=== PATIENT | female | born 1985 | race Two or more races ===

== ENCOUNTER → 2024-10-02 | Outpatient (CLI) | payer OTHER ==
--- NOTE | 2024-10-02 10:16 | US ---
EXAMINATION TYPE: US abdomen complete DATE OF EXAM: 10/02/2024 COMPARISON: NONE CLINICAL INDICATION: Female, 39 years old with history of R10.11 RIGHT UPPER QUADRANT PAIN; Pain x a couple years. Hx of gallstones. TECHNIQUE: Grayscale and color Doppler imaging of the abdomen was performed. FINDINGS: EXAM MEASUREMENTS: Liver Length: 17.2 cm. Normal less than 15.5 cm. Gallbladder Wall: 0.31 cm. This is borderline thickened CBD: Obscured Spleen: 10.5 cm Right Kidney: 12.0 x 5.5 x 4.7 cm Left Kidney: 11.3 x 6.0 x 5.7 cm BLENDING OPERATOR NOTES: Exam is limited due to gas. Pancreas: Limited. Portion of head and tail not seen. Liver: *Measures mildly enlarged. Gallbladder: *Hyperechoic foci and material seen within the gallbladder with posterior shadowin.3 x 2.2 x 1.4 cm. Evidence for sonographic Mckay's sign: No CBD: *Obscured due to shadowing from gallbladder Spleen: No abnormalities seen, limited due to rib shadow and gas. Right Kidney: wnl, No hydronephrosis, calculi or masses seen Left Kidney: wnl, No hydronephrosis, calculi or masses seen Upper IVC: wnl Abd Aorta: *Proximal segment appears ectatic. IMPRESSION: 1. Cholelithiasis. 2. [facility] Ronnie Chan, Workstation: [facility], 10/02/2024 10:14 AM
== END | disposition home or self-care (01) ==
LOC: RADUSWWP 07:02
PROVIDERS: ATTEND Family Medicine
DX: K80.20 Calculus of gallbladder without cholecystitis without obstruction (principal); R16.0 Hepatomegaly, not elsewhere classified
CPT/HCPCS: 76700

== ENCOUNTER 2024-11-30 12:25 | Day surgery (SDC) | payer OTHER ==
[2024-11-26 10:18] VITALS: BMI 36.6
--- NOTE | 2024-11-30 08:59 | P.GSHP ---
History of Present Illness H&P Date: 11/30/24 CHIEF COMPLAINT: Cholecystitis HISTORY OF PRESENT ILLNESS: The patient is a 39-year-old female who presents with history of epigastric including right upper quadrant abdominal pain for over 3 months due to gallstones. She underwent diagnostic studies for her gallbladder. Separately her clinical picture was consistent with cholecystitis. Now she presents for surgical intervention. PAST MEDICAL HISTORY: Please see list PAST SURGICAL HISTORY: Please see list MEDICATIONS: Please see list ALLERGIES: Please see list SOCIAL HISTORY: Please see list FAMILY HISTORY: Please see list REVIEW OF ORGAN SYSTEMS: CONSTITUTIONAL: No reports of fevers or chills. HEENT: Denies any troubles with the vision or hearing. ENDOCRINE: No reports of hypothyroidism. No diabetes. RESPIRATORY: No recent pneumonias. CARDIOVASCULAR: Denies chest pain or palpitations GI: No blood in stools or constipation. MUSCULOSKELETAL: Has occasional joint pain including back pain. NEURO: No seizure disorders or headaches. No recent stroke. PSYCH: No depression or suicidal ideation. GENITOURINARY: No active blood in urine. No urinary hesitancy. HEMATOLOGIC: No personal or family history of DVTs or pulmonary emboli. SKIN: No skin cancer. PHYSICAL EXAM: VITAL SIGNS: Afebrile vital signs stable GENERAL: Well-developed pleasant in no acute distress. HEENT: No scleral icterus. Extraocular movements grossly intact. Moist buccal mucosa. NECK: Supple without lymphadenopathy. CHEST: Unlabored respirations. Equal bilateral excursions. CARDIOVASCULAR: Regular rate regular rhythm rhythm. Distal 2+ pulses. ABDOMEN: Soft, nondistended. Tender along the epigastrium and right upper quadrant. MUSCULOSKELETAL: No clubbing, cyanosis, or edema. NEURO: Cranial nerves II to XII within normal limits. No focal or lateralizing signs. PSYCH: Alert and oriented to person, place and time. SKIN: Well-perfused good skin turgor. ASSESSMENT: 1. Epigastric and right upper quadrant abdominal pain 2. Chronic cholecystitis 3. Symptomatic gallstones. PLAN: 1. Will need a robotic cholecystectomy possible open. Benefits and risks were described. 2. Heparin for DVT prophylaxis 5000 units. 3. Antibiotic prophylaxis. 4. CBC and CMP on day of procedure 5. Non-narcotic pre and post op pain management reviewed. 6. Indocyanine green for biliary imaging. Past Medical History Past Medical History: No Reported History History of Any Multi-Drug Resistant Organisms: None Reported Additional Past Surgical History / Comment(s): Oopherectomy(cannot recall which side) and dermoid cyst removed. Past Anesthesia/Blood Transfusion Reactions: No Reported Reaction Smoking Status: Vaper - Past Family History Mother Family Medical History: No Reported History Medications and Allergies Home Medications Medication Instructions Recorded Confirmed Type Lisdexamfetamine Dimesylate 30 mg PO DAILY 11/26/24 11/26/24 History [Vtrinoe] Allergies Allergy/AdvReac Type Severity Reaction Status Date / Time No Known Allergies Allergy Verified 11/26/24 09:49
[~2024-11-30 12:25] MED LIST: INDOCYANINE GREEN 25 MG VIAL IV STA
[2024-11-30] MEDS: IV FLUID CONTINUATION 1,000 ML IV ONE (13:10)
[2024-11-30] MEDS: LACTATED RINGERS 1,000 ML IV SCH (13:38)
[2024-11-30] MEDS: DEXAMETHASONE SOD PHOSPHATE 4 MG/ML 1 ML VIAL IV ONE (13:39)
[2024-11-30] MEDS: ACETAMINOPHEN TAB 500 MG TAB PO PRN (13:39)
[2024-11-30] MEDS: ONDANSETRON 4 MG/2 ML VIAL IVP PRN (13:39)
[2024-11-30] MEDS: HEPARIN SODIUM,PORCINE 5,000 UNIT/ML 1 ML VIAL SQ PRN (13:40)
[2024-11-30] MEDS: SCOPOLAMINE 1 MG/72 HR PATCH TRANSDERM STA (13:41)
[2024-11-30] MEDS ORDERED: NEOSTIGMINE 1 MG/ML 10 ML VIAL ONE (13:41)
[2024-11-30] MEDS ORDERED: MIDAZOLAM 2 MG/2 ML VIAL ONE (13:41)
[2024-11-30] MEDS ORDERED: SUCCINYLCHOLINE CHLORIDE 200 MG/10 ML VIAL IV ONE (13:41)
[2024-11-30] MEDS ORDERED: ePHEDrine 50 MG/ML 1 ML VIAL ONE (13:41)
[2024-11-30] MEDS ORDERED: GLYCOPYRROLATE 0.2 MG/ML 2 ML VIAL ONE (13:41)
[2024-11-30] MEDS ORDERED: fentaNYL (PF) 50 MCG/ML 2 ML AMP ONE (13:41)
[2024-11-30] MEDS ORDERED: ROCURONIUM 10 MG/ML (5 ML VIAL) IV ONE (13:41)
[2024-11-30] MEDS ORDERED: PROPOFOL 10 MG/ML 20 ML VIAL IV ONE (13:41)
[2024-11-30] MEDS ORDERED: diphenhydrAMINE 50 MG/ML 1 ML VIAL ONE (13:41)
[2024-11-30] MEDS ORDERED: LIDOCAINE 1% INJ 10MG/ML (20 ML MDV) ONE (13:41)
[2024-11-30] MEDS ORDERED: HYDROmorphone (PF) 1 MG/ML ONE (13:41)
[2024-11-30] MEDS: ceFAZolin 2 GM in DEXTROSE 5% IN WATER 50 ML IVPB PRN (13:47)
[2024-11-30] MEDS: LIDOCAINE 1%-EPI 1:100,000 20 ML VIAL SQ ONE (14:10)
[2024-11-30] MEDS: LACTATED RINGERS 1,000 ML IV ONE (14:44)
[2024-11-30 15:07] VITALS: TEMP 97.5
[2024-11-30] MEDS: HYDROmorphone 0.5 MG/0.5 ML SYRINGE IVP PRN (15:30)
--- NOTE | 2024-11-30 15:40 | P.OP ---
Date of Procedure: 11/30/24 Description of Procedure: SURGEON: KIRTI WINN MD PREOPERATIVE DIAGNOSES: 1. Symptomatic gallstones 2. Right upper quadrant abdominal pain due to cholecystitis 3. Obesity excess calories, BMI 37.3 4. ADHD POSTOPERATIVE DIAGNOSES: 1. Symptomatic gallstones with chronic cholecystitis 2. Right upper quadrant abdominal pain due to cholecystitis 3. Obesity excess calories, BMI 37.3 4. ADHD 5. Pericholecystic adhesions OPERATION: Robotic-assisted da Bowen Xi laparoscopic cholecystectomy, multiport with FIREFLY Robotic-assisted da Bowen Xi laparoscopic lysis of adhesions ESTIMATED BLOOD LOSS: 5 mL. SPECIMENS REMOVED: Gallbladder. COMPLICATIONS: None. OPERATIVE FINDINGS: 1. Chronic cholecystitis with pericholecystic adhesions 2. Large 2 cm gallstone palpated with a large gallbladder INDICATIONS: The patient is a 39-year-old female who presents with symptomatic gallstones. Robotic assisted laparoscopic approach was described. Benefits and risks of the procedure including but not limited to bleeding, infection, injury to the biliary tree was described. Informed consent was obtained. DESCRIPTION OF PROCEDURE: Patient was brought to the operating room, placed in supine position. After general induction, the abdomen had been prepped and draped in standard sterile fashion. The robotic da Bowen XI system was primed. After a timeout protocol was performed, the patient had been prepped and draped in standard sterile fashion. The patient was injected with indocyanine green. A 5 mm 0 degrees laparoscopic trocar entry was performed along the left upper quadrant. The abdomen insufflated to 15 mmHg pressure which was tolerated well. Diagnostic laparoscopy demonstrated no injury to bowel viscera or mesentery. The liver surface was unremarkable. Moderate adhesions were identified along the gallbladder consistent with chronic cholecystitis next, two 8 mm robotic ports were placed along the right upper abdomen. The camera 8-mm port was maintained along the epigastrium. Another 8 mm port was placed along the left upper abdominal wall after exchanging the 5 mm port. Please note that the ports were placed at least 10 to 15 cm away from the target anatomy of the gallbladder. The robot was docked along the left lateral abdomen. The patient was repositioned in reverse Trendelenburg position. Using a grasper for arm 1, a grasper for arm 4, including hook cautery for arm 3, the robotic system was docked and primed as described. Instruments were interchanged by the physician assistant including hook cautery, Bovie cautery and clip appliers. I had sat at the console. The gallbladder was scarred with peritoneal adhesions. Lysis of adhesions was performed to free the gallbladder from the surrounding tissues. Next attention was brought to the infundibulum and cystic structures. The infundibulum and cystic duct were dissected free from surrounding tissues. The cystic duct was isolated. FIREFLY was used to identify the cystic artery and cystic structures. A critical view of safety was obtained. Large PLASTIC clips were used throughout the entire case. Using a clip air conditioning installer, 3 clips were placed at the junction of the infundibulum and cystic duct. The cystic duct was divided between clips. Next, the cystic artery was similarly clipped and cauterized. Electro-Bovie cautery was used to remove the gallbladder from the hepatic fossa. Hemostasis was checked and found to be adequate. The robot was undocked. I re-scrubbed into the case. Using a 10 mm Endo Catch bag via the left upper quadrant incision, the specimen was removed from the abdominal cavity. All pneumoperitoneum instruments were evacuated from the abdominal cavity. The incisions were reapproximated using 4-0 Monocryl in an interrupted subcuticular fashion. Fascial defects were less than 8 mm in size. Please note along the trocar sites, local anesthetic was placed as a field block prior to insertion of all instruments. Liquid glue was applied to the skin. At the end of the procedure needle, sponge, and instrument count had been verified correct by the retail merchandiser technician. The patient was transferred to postanesthesia care unit in stable condition. Intraoperative films were shared with the patient's family. Plan - Discharge Summary Discharge Rx Participant: No New Discharge Prescriptions: New Simethicone [Gas-X] 125 mg PO AC-TID PRN #20 capsule PRN Reason: Pain Ibuprofen [Motrin] 600 mg PO Q8HR PRN #30 tab PRN Reason: Pain Acetaminophen Tab [Tylenol Tab] 1,000 mg PO Q6HR PRN #30 tablet PRN Reason: Pain Continue Lisdexamfetamine Dimesylate [Vyvanse] 30 mg PO DAILY Discharge Medication List Lisdexamfetamine Dimesylate [Vyvanse] 30 mg PO DAILY 11/26/24 [History] Acetaminophen Tab [Tylenol Tab] 1,000 mg PO Q6HR PRN #30 tablet 11/30/24 [Rx] Ibuprofen [Motrin] 600 mg PO Q8HR PRN #30 tab 11/30/24 [Rx] Simethicone [Gas-X] 125 mg PO AC-TID PRN #20 capsule 11/30/24 [Rx] Follow up Appointment(s)/Referral(s): Kirti Winn MD [STAFF PHYSICIAN] - 12/08/24 6:00 pm (Telehealth) Patient Instructions/Handouts: Laparoscopic Cholecystectomy (DC) Activity/Diet/Wound Care/Special Instructions: NO LONG DRIVES OR AIRPLANE RIDES OVER 60 MINUTES FOR THE NEXT 2 WEEKS DUE TO HIGH RISK OF PULMONARY EMBOLISM/DVTs May drive in 72 hrs, 12/03/2024 Recommend low-fat diet for the next 2 days. No lifting over 10 pounds in 2 weeks until December 14October shower. No bath tub soaks for two weeks until December 14 Diet as tolerated. Use Tylenol, simethicone and ibuprofen or Aleve scheduled for the next 24-48 hours for best pain relief. Use ice along incisions for today to prevent swelling. Discharge Disposition: HOME SELF-CARE
[2024-11-30] MEDS: IBUPROFEN 600 MG TAB PO STA (16:53)
[2024-11-30 18:11] VITALS: BP 137/74; PULSE 74; RESP 16
== END 2024-11-30 18:16 | disposition home or self-care (01) ==
LOC: OR 12:25
PROVIDERS: ATTEND Surgery Plastic and Reconstructive Surgery
DX: K80.10 Calculus of gallbladder with chronic cholecystitis without obstruction (principal); K66.0 Peritoneal adhesions (postprocedural) (postinfection); F90.9 Attention-deficit hyperactivity disorder, unspecified type; E66.9 Obesity, unspecified; Z68.37 Body mass index [BMI] 37.0-37.9, adult; F17.290 Nicotine dependence, other tobacco product, uncomplicated; Z79.899 Other long term (current) drug therapy
CPT/HCPCS: 47562; S2900; 81025; 88304